=== PATIENT | male | born 1960 | race African-American/Black ===

== ENCOUNTER 2018-06-01 10:59 | Emergency (ER) | payer MEDICARE ==
[~2018-06-01] VITALS: Ht 182.9 cm; Wt 95.3 kg
[2018-06-01] MEDS ORDERED: LIDOCAINE 1% PF 30 ML VIAL. ONE (12:09)
[2018-06-01] MEDS ORDERED: ETOMIDATE 20 MG/10 ML VIAL. IV ONE ×2 (12:09→12:45)
[2018-06-01] MEDS ORDERED: fentaNYL PF VIAL 100 MCG/2 ML VIAL ONE (12:09)
[2018-06-01] MEDS ORDERED: LIDOCAINE 1% PF 30 ML VIAL. INJ ONE (12:20)
[2018-06-01] MEDS ORDERED: fentaNYL PF VIAL 100 MCG/2 ML VIAL IM ONE (12:45)
[2018-06-01] MEDS ORDERED: levETIRAcetam 1,000 MG in IV DEXTROSE 5% 100ML 100 ML IV ONE (13:00)
[2018-06-01 13:16] LABS: BASO # 0.1 x10^3/uL (0.0-0.2); BASO % 0 % (0-3); EOS # 0.1 x10^3/uL (0.0-0.7); EOS % 0 % (0-3); HEMATOCRIT 38.1 % (39.0-53.0); HEMOGLOBIN 12.4 g/dL (13.0-17.5); LYMPH # 2.7 x10^3/uL (1.0-4.8); LYMPH % 14 % (24-48); MEAN CORPUSCULAR HEMOGLOBIN 29 pg (25-35); MEAN CORPUSCULAR HGB CONC 33 g/dL (31-37); MEAN CORPUSCULAR VOLUME 88 fL (79-100); MONO % 10 % (0-9); NEUT # 14.7 x10^3uL (1.8-7.7); NEUT % 75 % (31-73); PLATELET COUNT 275 x10^3/uL (140-400); RED BLOOD COUNT 4.35 x10^6/uL (4.30-5.70); RED CELL DISTRIBUTION WIDTH 15.6 % (11.5-14.5); WHITE BLOOD COUNT 19.6 x10^3/uL (4.0-11.0)
[2018-06-01 13:27] LABS: CALCIUM 9.2 mg/dL (8.5-10.1); CREATININE 1.1 mg/dL (0.7-1.3); GFR 83.5; POTASSIUM 3.4 mmol/L (3.5-5.1)
[2018-06-01 13:30] LABS: PROTHROMBIN TIME PATIENT 16.4 SEC (11.7-14.0)
[2018-06-01] MEDS ORDERED: fentaNYL PF VIAL 100 MCG/2 ML VIAL IV ONE (14:00)
[2018-06-01 14:19] LABS: % EOS 1 % (0-5); % LYMPHS 17 % (24-48); % MONOS 10 % (0-10); % SEGS 72 % (35-66); PLT ESTIMATE ADEQUATE (ADEQUATE)
--- NOTE | 2018-06-01 14:27 | RAD ---
EXAM: PORTABLE CHEST 1V DATE: 06/01/2018 1:56 PM INDICATION: LEUKOCYTOSIS NON VERBAL PATIENT COMPARISON: No Prior FINDINGS: Left upper extremity PICC tip projects over the distal SVC/cavoatrial junction. Heart is top normal in size. Aorta is tortuous. Dense retrocardiac parenchymal airspace opacities are seen. Trace right pleural effusion. No pneumothorax. IMPRESSION: 1. Dense retrocardiac parenchymal airspace opacities, likely developing consolidative process. Atelectasis may have similar appearance. 2. Trace right pleural effusion. Electronically signed by: Filiberto Llamas MD (06/01/2018 2:22 PM) [id number]
[2018-06-01 14:32] LABS: BILIRUBIN,URINE NEGATIVE (NEG); CLARITY,URINE CLEAR; COLOR,URINE YELLOW; NITRITE,URINE NEGATIVE (NEG); PH,URINE 5.5; PROTEIN,URINE NEGATIVE (NEG-TRACE); UROBILINOGEN,URINE 0.2 mg/dL (0.2 mg/dL)
[2018-06-01 14:49] LABS: BACTERIA,URINE FEW /HPF (0-FEW); HYALINE CASTS, URINE FEW /HPF; SQUAMOUS EPITHELIAL CELL,UR FEW /LPF
[2018-06-01] MEDS ORDERED: IV NORMAL SALINE 1000ML BAG 1,000 ML IV SCH (15:12)
[2018-06-01] MEDS ORDERED: PIP/TAZO PER PHARMACY MC PRN (15:15)
[2018-06-01] MEDS ORDERED: VANCOMYCIN PER PHARMACY MC PRN (15:15)
[2018-06-01] MEDS ORDERED: fentaNYL PF VIAL 100 MCG/2 ML VIAL IV PRN (15:15)
[2018-06-01] MEDS ORDERED: PIPERACILLIN/TAZOBACTAM 3.375 GM in IV NORMAL SALINE 50ML 50 ML IV ONE (15:30)
[2018-06-01 15:50] VITALS: BP 124/80
[2018-06-01] MEDS ORDERED: VANCOMYCIN 2 GM in IV NORMAL SALINE 500ML BAG 500 ML IV ONE (16:00)
--- NOTE | 2018-06-01 16:16 | PHYS DOC ---
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 Past Surgical History: Other Additional Past Surgical Histo: PEG Tube placement. Alcohol Use: None Drug Use: None Adult General Chief Complaint Chief Complaint: OTHER COMPLAINTS HPI HPI Patient is a 57 year old male who presents with tongue laceration and bleeding. The patient did recently have a crippling cerebrovascular accident. He is admitted inpatient at a [facility]. 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 He is referred to the emergency department today for ongoing bleeding problems. The patient was found by nursing staff this morning to be lying in his bed with blood in his mouth. The patient does have a history of seizures and does take Keppra 500 mg twice daily. Apparently, attempts were made to slow the bleeding with direct application of pressure but these were not successful so the patient was referred to the emergency department. Additionally, the patient does not have the mental capacity to comply with a mouth or tongue exam. There is concern that the patient will need to be sedated for suturing. He does not take anticoagulation medicine other than aspirin. Primary history is obtained from nursing staff at [facility] via telephone conversation Review of Systems Review of Systems No review of systems is available from this patient as he is nonverbal at baseline All other systems were reviewed and found to be within normal limits, except as documented in this note. Current Medications Current Medications Current Medications Medications (Trade) Dose Ordered Sig/Alejandra Start Time Stop Time Status Last Admin Dose Admin Etomidate (Amidate) 20 mg 1X ONCE 06/01/18 12:45 06/01/18 13:34 DC 06/01/18 12:45 20 MG Fentanyl Citrate (Fentanyl 2ml Vial) 50 mcg PRN Q2HR PRN 06/01/18 15:15 06/01/18 15:25 DC Levetiracetam 1000 mg/Dextrose 110 ml @ 440 mls/hr 1X ONCE 06/01/18 13:00 06/01/18 13:14 DC 06/01/18 13:13 440 MLS/HR Lidocaine HCl (Xylocaine 1% Pf 30ml Vial) 20 ml 1X ONCE 06/01/18 12:20 06/01/18 13:34 DC 06/01/18 12:20 20 ML Piperacillin Sod/ Tazobactam Sod (Zosyn Per Pharmacy) 1 each PRN DAILY PRN 06/01/18 15:15 06/01/18 15:26 DC Piperacillin Sod/ Tazobactam Sod 3.375 gm/Sodium Chloride 50 ml @ 100 mls/hr 1X ONCE 06/01/18 15:30 06/01/18 15:59 DC Sodium Chloride 1,000 ml @ 50 mls/hr Q20H 06/01/18 15:12 06/01/18 15:25 DC Vancomycin HCl (Vanco Per Pharmacy) 1 each PRN DAILY PRN 06/01/18 15:15 06/01/18 15:26 DC Vancomycin HCl 2 gm/Sodium Chloride 500 ml @ 250 mls/hr 1X ONCE 06/01/18 16:00 06/01/18 17:59 Allergies Allergies Allergies Coded Allergies Type Severity Reaction Last Updated Verified No Known Drug Allergies 06/01/18 No Physical Exam Physical Exam Constitutional: chronically ill, full-care patient with blood and clot emanating from the oral cavity HENT: Normocephalic, atraumatic, 1.2 CM laceration along the left lateral aspect of the tongue Eyes: normal conjunctiva Neck: contracted Cardiovascular: mild tachycardia, regular rhythm Lungs & Thorax: Bilateral breath sounds clear Abdomen: soft. NTTP Back: No trauma Extremities: no edema, muscle atrophy Neurologic: protecting airway, left flaccid paralysis, baseline significant baseline neuro deficits Current Patient Data Vital Signs Vital Signs Date Time Temp Pulse Resp B/P (MAP) Pulse Ox O2 Delivery O2 Flow Rate FiO2 06/01/18 14:34 16 100 Room Air 06/01/18 13:37 3.0 06/01/18 13:20 110 96/57 (70) 06/01/18 12:20 98.6 Lab Values Laboratory Tests Test 06/01/18 13:06 06/01/18 14:15 06/01/18 15:20 White Blood Count 19.6 x10^3/uL (4.0-11.0) H Red Blood Count 4.35 x10^6/uL (4.30-5.70) Hemoglobin 12.4 g/dL (13.0-17.5) L Hematocrit 38.1 % (39.0-53.0) L Mean Corpuscular Volume 88 fL (79-100) Mean Corpuscular Hemoglobin 29 pg (25-35) Mean Corpuscular Hemoglobin Concent 33 g/dL (31-37) Red Cell Distribution Width 15.6 % (11.5-14.5) H Platelet Count 275 x10^3/uL (140-400) Neutrophils (%) (Auto) 75 % (31-73) H Lymphocytes (%) (Auto) 14 % (24-48) L Monocytes (%) (Auto) 10 % (0-9) H Eosinophils (%) (Auto) 0 % (0-3) Basophils (%) (Auto) 0 % (0-3) Neutrophils # (Auto) 14.7 x10^3uL (1.8-7.7) H Lymphocytes # (Auto) 2.7 x10^3/uL (1.0-4.8) Monocytes # (Auto) 2.0 x10^3/uL (0.0-1.1) H Eosinophils # (Auto) 0.1 x10^3/uL (0.0-0.7) Basophils # (Auto) 0.1 x10^3/uL (0.0-0.2) Segmented Neutrophils % 72 % (35-66) H Lymphocytes % 17 % (24-48) L Monocytes % 10 % (0-10) Eosinophils % 1 % (0-5) Platelet Estimate Adequate (ADEQUATE) Prothrombin Time 16.4 SEC (11.7-14.0) H Prothrombin Time INR 1.4 (0.8-1.1) H PTT 25 SEC (24-38) Sodium Level 147 mmol/L (136-145) H Potassium Level 3.4 mmol/L (3.5-5.1) L Chloride Level 110 mmol/L (98-107) H Carbon Dioxide Level 30 mmol/L (21-32) Anion Gap 7 (6-14) Blood Urea Nitrogen 50 mg/dL (8-26) H Creatinine 1.1 mg/dL (0.7-1.3) Estimated GFR (Cockcroft-Gault) 83.5 Glucose Level 117 mg/dL (70-99) H Calcium Level 9.2 mg/dL (8.5-10.1) Procalcitonin < 0.10 ng/mL (0.00-0.10) Urine Collection Type Unknown Urine Color Yellow Urine Clarity Clear Urine pH 5.5 Urine Specific [place] >=1.030 Urine Protein Negative mg/dL (NEG-TRACE) Urine Glucose (UA) Negative mg/dL (NEG) Urine Ketones (Stick) Negative mg/dL (NEG) Urine Blood Negative (NEG) Urine Nitrite Negative (NEG) Urine Bilirubin Negative (NEG) Urine Urobilinogen Dipstick 0.2 mg/dL (0.2 mg/dL) Urine Leukocyte Esterase Negative (NEG) Urine RBC 1-2 /HPF (0-2) Urine WBC 1-4 /HPF (0-4) Urine Squamous Epithelial Cells Few /LPF Urine Bacteria Few /HPF (0-FEW) Urine Hyaline Casts Few /HPF Urine Mucus Mod /LPF Lactic Acid Level 0.8 mmol/L (0.4-2.0) Laboratory Tests 06/01/18 13:06 Laboratory Tests 06/01/18 13:06 EKG EKG [] Radiology/Procedures Radiology/Procedures [] Course & Med Decision Making Course & Med Decision Making Pertinent Labs and Imaging studies reviewed. (See chart for details) Patient was evaluated in the emergency department as documented above. He originally arrived with little known history. CT scan of the head and neck were ordered at that time. After additional history was obtained from the residential staff, the patient did not have any traumatic injury. He was lying in bed all night. He does not have the physical capacity to get out of bed. He likely had a seizure as a cause for his tongue laceration although later in the visit I spoke to his primary care physician who suspected he possibly sneeze or had some biting type injury of the time. At any rate, he was referred here for suturing. He did require conscious sedation to suture the tongue. Please see the documentation of the procedure note below. The patient had steady slow bleeding of the tongue with clot formation in his mouth on arrival. During the ED course, basic labs were collected. The patient was noted to have significant leukocytosis. At this point, decision was originally made to admit the patient with IV antibiotics. However, after further conversations with his primary physician, the patient is already treated with IV antibiotics. He originated here from a facility that has the capacity to manage his pneumonia. Pneumonia was seen on chest x-ray. Ultimately, the patient was referred back to the hospital from where he came. The lacerated tongue was repaired and bleeding was controlled. See procedure note below. Procedure note: Laceration over the left lateral aspect of the tongue with brisk bleeding. The patient did require conscious sedation for this procedure. Patient is ASA class 3-4 based on his recent cerebrovascular accident. All equipment and airway cart was appropriately close to the patient and he was connected to monitors. He was placed on 100% oxygen initially. He was given 50 g of fentanyl followed by 10 mg of etomidate. The patient did require a second dose of etomidate prior to completion of the procedure. Following laceration repair, the patient was observed one-on-one per nursing staff until he was back to his mental baseline. He did not have any significant desaturations. Please refer to nursing documentation for exact times and medication dosages for this procedure. Laceration repair: The time was anesthetized with 1% lidocaine, about 4 mls total. Initially, 2 interrupted simple sutures were placed using 4-0 Vicryl. This did not adequately control bleeding. After that, a vertical mattress stitch was placed across the wound. This nearly stopped the bleeding. An additional simple interrupted suture was placed. Following this, the patient had good control of hemorrhage. He was observed in the ER for several more hours prior to discharge back to the hospital from where he came. Dragon Disclaimer Dragon Disclaimer This electronic medical record was generated, in whole or in part, using a voice recognition dictation system. Departure Departure Impression: Primary Impression: Pneumonia Additional Impression: Laceration of tongue Disposition: 01 HOME, SELF-CARE Condition: STABLE Patient Instructions: Laceration Care, Adult, [id number] Additional Instructions: sutures were placed in the tongue for control of zac bleeding. Sutures do not need to be removed. They will dissolve. Problem Qualifiers RACQUEL GIRALDO DO Jun 01, 2018 16:16
== END 2018-06-01 16:03 | disposition home or self-care (01) ==
LOC: ER 10:59
DX: S01.512A Laceration without foreign body of oral cavity, initial encounter (principal); J18.9 Pneumonia, unspecified organism; I48.91 Unspecified atrial fibrillation; E78.00 Pure hypercholesterolemia, unspecified; I10 Essential (primary) hypertension; Z86.73 Personal history of transient ischemic attack (TIA), and cerebral infarction without residual deficits; X58.XXXA Exposure to other specified factors, initial encounter; Y93.89 Activity, other specified; Y92.89 Other specified places as the place of occurrence of the external cause; Y99.8 Other external cause status
CPT/HCPCS: 36415; 41250; 71045; 80048; 81001; 83605; 84145; 85007; 85025; 85610; 85730; 87040; 96365; 99285; J1953; J3010; 12011; 99152